=== PATIENT | female | born 1975 | race Caucasian/White ===

== ENCOUNTER 2017-02-11 17:40 | Emergency (ER) | payer MEDICAID ==
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
== END 2017-02-11 18:30 | disposition home or self-care (01) ==
LOC: ER 17:40
DX: S00.03XA Contusion of scalp, initial encounter (principal); I10 Essential (primary) hypertension; E11.9 Type 2 diabetes mellitus without complications; W19.XXXA Unspecified fall, initial encounter; Y93.89 Activity, other specified; Y92.89 Other specified places as the place of occurrence of the external cause; Y99.8 Other external cause status
CPT/HCPCS: Z7502

== ENCOUNTER 2018-01-07 09:57 | Inpatient (IN) | payer MEDICAID ==
[2018-01-07] MEDS ORDERED: Sodium Chloride 0.9% 1,000 ML IV ONE (11:10)
--- NOTE | 2018-01-07 11:18 | ED Physician Chart ---
ED Chief Complaint/HPI - Patient Information Date Seen:: 01/07/18 Time Seen:: 10:50 Chief Complaint:: EPIGASTRIC PAIN History of Present Illness:: 42 YR OLD FEMALE WITH EPIGASTRIC PAIN SINCE YEST BURNING PAIN UP IN THE CHEST HX OF GERD WAS ON ZANTAC AND STOPPED IT LAST WK SOME NAUSEA VOMITING HX OF DIABETES AND HYPERTENSION Allergies:: Allergies Allergy/AdvReac Type Severity Reaction Status Date / Time No Known Allergies Allergy Verified 02/11/17 18:03 Vitals:: Vital Signs - 8 hr 01/07/18 10:21 Temp 98.2 F HR 102 RR 18 BP 168/87 O2 Sat % 100 ED Review of Systems - Review of Systems General/Constitutional: Fever, Chills Skin: No skin lesions Neck: No neck pain Cardio Vascular: No chest pain Pulmonary: No SOB GI: Nausea, Vomiting Musculoskeletal: No bone or joint pain Endocrine: No polyuria Psychiatric: No prior psych history, No anxiety Hematopoietic: No bruising Neurological: No syncope ED Past Medical History - Past Medical History Past Medical History: HTN, DM Family Medical History - Family Member Mother History Unknown: Yes ED Physical Exam - Physical Examination General/Constitutional: Well-developed, well-nourished Skin: Nl inspection ENMT: External ears, nose nl Neck: Nontender Respiratory: Nl effort/Exclusion Cardio Vascular: RRR GI: No tenderness/rebounding/guarding : No CVA tenderness Extremities: No tenderness or effusion Neuro/Psych: Alert/oriented Misc: Normal back ED Assessment - Assessment General Assessment: ABD PAIN leukocytosis hyponatremia ED Septic Shock - . Is Septic Shock (SBP<90, OR Lactate>4 mmol\L) present?: No - <6hrs of presentation: Vital Signs: Vital Signs - 8 hr 01/07/18 10:21 Temp 98.2 F HR 102 RR 18 BP 168/87 O2 Sat % 100 ED Reassessment (Disposition) - Reassessment Reassessment Condition:: Improved (NS IV FLUIDS ZOFRAN ORDERED AND CT ABD PELVIS ) - Diagnosis Diagnosis:: ABD PAIN VOMITING hyponatremia leukocytosis CT ABD LABS UA ORDERED - Patient Disposition Discharge/Transfer:: Acute Care w/in this hosp Admitted to:: Med/Surg
[2018-01-07 11:28] LABS: URINE SOURCE CLEAN C
[2018-01-07 11:36] LABS: URINE BILIRUBIN NEGATIVE (NEGATIVE); URINE BLOOD NEGATIVE (NEGATIVE); URINE GLUCOSE (UA) >=1000 mg/dL (NEGATIVE); URINE KETONE NEGATIVE (NEGATIVE); URINE LEUKOCYTE ESTERASE NEGATIVE (NEGATIVE); URINE MICROSCOPIC INDICATED? YES; URINE NITRATE NEGATIVE (NEGATIVE); URINE PH 7.5 (4.6 - 8.0); URINE PROTEIN NEGATIVE (NEGATIVE); URINE UROBILINOGEN 0.2 E.U./dL (0.2 - 1.0)
[2018-01-07 11:37] LABS: % EOSINOPHILS 0.4 % (0.0-5.0); % LYMPHOCYTES 10.6 % (20.0-50.0); BASOPHILE ABSOLUTE 0.2 Th/cumm (0-0.2); EOSINOPHILE ABSOLUTE 0.1 Th/cmm (0.1-0.4); HEMATOCRIT 36.5 % (41.0-60); HEMOGLOBIN 12.5 gm/dL (12-16); LYMPHOCYTE ABSOLUTE 1.7 Th/cmm (1.5-3.0); MEAN CELL VOLUME 85.6 fl (81-100); MEAN CORPUSCULAR HEMOGLOBIN 29.2 pg (27.0-31.0); MEAN CORPUSCULAR HGB CONC 34.2 pg (28.0-36.0); MEAN PLATELET VOLUME 7.3 fl; MONOCYTE ABSOLUTE 0.8 Th/cmm (0.3-1.0); PLATELET COUNT 274 Th/cmm (150-400); RED BLOOD COUNT 4.26 Mil/cmm (3.80-5.10); RED CELL DISTRIBUTION WIDTH 12.9 % (11.5-20.0)
[2018-01-07 11:42] LABS: WHITE BLOOD COUNT 15.8 Th/cmm (4.8-10.8)
[2018-01-07 11:43] LABS: URINE CLARITY CLEAR (CLEAR); URINE COLOR YELLOW
[2018-01-07 11:45] LABS: URINE BACTERIA FEW /hpf (NONE SEEN); URINE EPITHELIAL CELLS OCCASIONAL /lpf (FEW); URINE RBC NONE SEEN /hpf (0-5)
[2018-01-07 11:47] LABS: ALBUMIN 3.7 gm/dL (3.7-5.3); ALKALINE PHOSPHATASE 61 U/L (34-104); BILIRUBIN,TOTAL 0.7 mg/dL (0.3-1.0); BUN - UREA NITROGEN 6 mg/dL (7-25); CALCIUM SERUM 9.4 mg/dL (8.6-10.3); CARBON DIOXIDE 28.8 mEq/L (21.0-31.0); CHLORIDE 91 mEq/L (98-107); CREATININE - SERUM 0.5 mg/dL (0.6-1.2); GFR AFRICAN-AMERICAN > 60.0 ml/min (>90); GFR NON AFRICAN-AMERICAN > 60.0 ml/min; GLUCOSE 301 mg/dL (70-105); POTASSIUM SERUM 3.8 mEq/L (3.5-5.1); SGOT 17 U/L (13-39); SGPT/ALT 35 U/L (7-52); SODIUM SERUM 127 mEq/L (136-145); TOTAL PROTEIN,SERUM 7.5 gm/dL (6.0-8.3)
[2018-01-07] MEDS ORDERED: Piperacillin Sodium/Tazobact 3.375 gm Vial IV ONE (13:12)
[2018-01-07] MEDS ORDERED: Sodium Chloride 0.9% 1,000 ML IV SCH (15:00)
[2018-01-07] MEDS: INSULIN ASPART SLIDING SCALE 100 UNITS/ML UNIT SUBQ SCH ×2 (19:37→20:49)
[2018-01-08 05:32] LABS: ALBUMIN 3.2 gm/dL (3.7-5.3); ALKALINE PHOSPHATASE 61 U/L (34-104); ANION GAP 10.1 (7.0-16.0); BILIRUBIN,TOTAL 0.9 mg/dL (0.3-1.0); BUN - UREA NITROGEN 6 mg/dL (7-25); CALCIUM SERUM 8.6 mg/dL (8.6-10.3); CARBON DIOXIDE 27.3 mEq/L (21.0-31.0); CHLORIDE 99 mEq/L (98-107); CREATININE - SERUM 0.5 mg/dL (0.6-1.2); GFR AFRICAN-AMERICAN > 60.0 ml/min (>90); GFR NON AFRICAN-AMERICAN > 60.0 ml/min; GLUCOSE 274 mg/dL (70-105); POTASSIUM SERUM 3.4 mEq/L (3.5-5.1); SGOT 11 U/L (13-39); SGPT/ALT 24 U/L (7-52); SODIUM SERUM 133 mEq/L (136-145); TOTAL PROTEIN,SERUM 6.4 gm/dL (6.0-8.3)
[2018-01-08 07:01] LABS: HEMATOCRIT 33.1 % (41.0-60); HEMOGLOBIN 11.4 gm/dL (12-16); MEAN CELL VOLUME 86.5 fl (81-100); MEAN CORPUSCULAR HEMOGLOBIN 29.7 pg (27.0-31.0); MEAN CORPUSCULAR HGB CONC 34.3 pg (28.0-36.0); MEAN PLATELET VOLUME 7.8 fl; PLATELET COUNT 257 Th/cmm (150-400); RED BLOOD COUNT 3.83 Mil/cmm (3.80-5.10); RED CELL DISTRIBUTION WIDTH 12.9 % (11.5-20.0)
[2018-01-08] MEDS: INSULIN ASPART SLIDING SCALE 100 UNITS/ML UNIT SUBQ SCH ×4 (07:01→20:48)
[2018-01-08 07:12] LABS: WHITE BLOOD COUNT 15.9 Th/cmm (4.8-10.8)
[2018-01-08 07:30] LABS: BAND NEUTROPHILE 3 % (0-10); BASOPHIL 0 % (0-3); EOSINOPHIL 0 % (0-5); LYMPHOCYTE 11 % (20-50); MONOCYTE 5 % (2-10); NEUTROPHILS 81 % (40-80)
--- NOTE | 2018-01-08 08:32 | History and Physical ---
History of Present Illness - HPI Chief Complaint: abdominal pain HPI: 42 y/o female who presents to [facility] ER for epigastric abdominal pain with associated nausea and vomiting. Patient complains of burning sensation to the chest. Patient has a history of GERD and takes only zantac and apparently stopped taking last week. Patient has a history of diabetes mellitus and hypertension and was found to have elevated blood sugars. Vital Signs: Last Vital Signs Temp 97.9 F 01/08/18 08:06 Pulse 81 01/08/18 08:06 Resp 18 01/08/18 08:06 BP 132/78 01/08/18 08:06 Pulse Ox 98 01/08/18 08:06 Past Medical History Cardiovascular: Report: HTN Pulmonary: Report: No Pertinent Hx TONGUE PRESSER: Report: No Pertinent Hx GI: Report: GERD Psych: Report: No Pertinent Hx Musculoskeletal: Report: No Pertinent Hx Rheumatologic: Report: No pertinent Hx Infectious Disease: Report: No Pertinent Hx Renal/: Report: No Pertinent Hx Endocrine: Report: Diabetes Dermatology: Report: No Pertinent Hx - Past Surgical History Past Surgical History: No pertinent Hx Family Medical History - Family Member Mother History Unknown: Yes Social History Smoke: No Alcohol: None Drugs: None Lives: Alone - Medications Home Medications: Home Medication Medication Instructions Recorded Type Insulin Glargine,Hum.rec.anlog 155 units SQ DAILY 01/07/18 History [Basaglar Kwikpen U-100] Lisinopril 20 mg PO DAILY 01/07/18 History Ranitidine HCl [Zantac] 150 mg PO DAILY 01/07/18 History metFORMIN [Glucophage] 500 mg PO BID 01/07/18 History - Allergies Allergies/Adverse Reactions: Allergies Allergy/AdvReac Type Severity Reaction Status Date / Time No Known Allergies Allergy Verified 01/07/18 12:09 Review of Systems - Review of Systems Constitutional: Report: Fever, Chills Eyes: Report: No Significant ENT: Report: No Significant Respiratory: Report: No Significant Cardiovascular: Denies: Chest Pain Gastrointestinal: Report: Nausea, Vomiting, Abdominal Pain Genitourinary: Report: No Significant Musculoskeletal: Report: No Significant Skin: Report: No Significant Neurological: Report: No Significant Physical Exam - Physical Exam HEENT: Report: Ears Nose Throat within normal limits, Pharnyx within normal limits Neck: Report: Within normal limits Cardiovascular Systems: Report: +s1/s2 noted, Regular, Rate and Rhythm Respiratory: Report: Breath Sounds are within normal limits, Clear to Auscultation of lung jo Abdomen: Report: Tender to palpation Back: Report: Inspection of back is within normal limits. - Lab Results All Lab Results last 24 hours: Laboratory Results - last 24 hr 01/07/18 01/07/18 01/07/18 10:35 11:20 11:20 WBC 15.8 H RBC 4.26 Hgb 12.5 Hct 36.5 L MCV 85.6 MCH 29.2 MCHC Differential 34.2 RDW 12.9 Plt Count 274 MPV 7.3 Add Manual Diff Neutrophils % 83.0 H Band Neutrophils % Lymphocytes % 10.6 L Monocytes % 5.0 Eosinophils % 0.4 Basophils % 1.0 Neutrophils (Manual) Lymphocytes Monocytes Eosinophils Basophils Sodium 127 L Potassium 3.8 Chloride 91 L Carbon Dioxide 28.8 Anion Gap 11.0 BUN 6 L Creatinine 0.5 L Est GFR ( Amer) > 60.0 Est GFR (Non-Af Amer) > 60.0 BUN/Creatinine Ratio 12.0 Glucose 301 H POC Glucose Whole Bld Lactic Acid Calcium 9.4 Total Bilirubin 0.7 AST 17 ALT 35 Alkaline Phosphatase 61 Troponin I Total Protein 7.5 Albumin 3.7 Globulin 3.8 Albumin/Globulin Ratio 1.0 Urine Source CLEAN C Urine Color YELLOW Urine Clarity CLEAR Urine pH 7.5 Ur Specific [place] 1.010 Urine Protein NEGATIVE Urine Glucose (UA) >=1000 H Urine Ketones NEGATIVE Urine Blood NEGATIVE Urine Nitrate NEGATIVE Urine Bilirubin NEGATIVE Urine Urobilinogen 0.2 Ur Leukocyte Esterase NEGATIVE Urine RBC NONE SEEN Urine WBC 2-5 Ur Epithelial Cells OCCASIONAL Urine Bacteria FEW Urine Test 01/07/18 01/07/18 01/07/18 11:20 11:20 11:40 WBC RBC Hgb Hct MCV MCH MCHC Differential RDW Plt Count MPV Add Manual Diff Neutrophils % Band Neutrophils % Lymphocytes % Monocytes % Eosinophils % Basophils % Neutrophils (Manual) Lymphocytes Monocytes Eosinophils Basophils Sodium Potassium Chloride Carbon Dioxide Anion Gap BUN Creatinine Est GFR ( Amer) Est GFR (Non-Af Amer) BUN/Creatinine Ratio Glucose POC Glucose Whole Bld Lactic Acid 1.31 Calcium Total Bilirubin AST ALT Alkaline Phosphatase Troponin I < 0.01 L Total Protein Albumin Globulin Albumin/Globulin Ratio Urine Source Urine Color Urine Clarity Urine pH Ur Specific [place] Urine Protein Urine Glucose (UA) Urine Ketones Urine Blood Urine Nitrate Urine Bilirubin Urine Urobilinogen Ur Leukocyte Esterase Urine RBC Urine WBC Ur Epithelial Cells Urine Bacteria Urine Test NEGATIVE 01/07/18 01/07/18 01/07/18 14:11 17:06 18:58 WBC RBC Hgb Hct MCV MCH MCHC Differential RDW Plt Count MPV Add Manual Diff Neutrophils % Band Neutrophils % Lymphocytes % Monocytes % Eosinophils % Basophils % Neutrophils (Manual) Lymphocytes Monocytes Eosinophils Basophils Sodium Potassium Chloride Carbon Dioxide Anion Gap BUN Creatinine Est GFR ( Amer) Est GFR (Non-Af Amer) BUN/Creatinine Ratio Glucose POC Glucose 298 H 246 H 230 H Whole Bld Lactic Acid Calcium Total Bilirubin AST ALT Alkaline Phosphatase Troponin I Total Protein Albumin Globulin Albumin/Globulin Ratio Urine Source Urine Color Urine Clarity Urine pH Ur Specific [place] Urine Protein Urine Glucose (UA) Urine Ketones Urine Blood Urine Nitrate Urine Bilirubin Urine Urobilinogen Ur Leukocyte Esterase Urine RBC Urine WBC Ur Epithelial Cells Urine Bacteria Urine Test 01/08/18 01/08/18 01/08/18 05:00 05:00 05:51 WBC 15.9 H RBC 3.83 Hgb 11.4 L Hct 33.1 L MCV 86.5 MCH 29.7 MCHC Differential 34.3 RDW 12.9 Plt Count 257 MPV 7.8 Add Manual Diff YES Neutrophils % Band Neutrophils % 3 Lymphocytes % Monocytes % Eosinophils % Basophils % Neutrophils (Manual) 81 H Lymphocytes 11 L Monocytes 5 Eosinophils 0 Basophils 0 Sodium 133 L Potassium 3.4 L Chloride 99 Carbon Dioxide 27.3 Anion Gap 10.1 BUN 6 L Creatinine 0.5 L Est GFR ( Amer) > 60.0 Est GFR (Non-Af Amer) > 60.0 BUN/Creatinine Ratio 12.0 Glucose 274 H POC Glucose 248 H Whole Bld Lactic Acid Calcium 8.6 Total Bilirubin 0.9 AST 11 L ALT 24 Alkaline Phosphatase 61 Troponin I Total Protein 6.4 Albumin 3.2 L Globulin 3.2 Albumin/Globulin Ratio 1.0 Urine Source Urine Color Urine Clarity Urine pH Ur Specific [place] Urine Protein Urine Glucose (UA) Urine Ketones Urine Blood Urine Nitrate Urine Bilirubin Urine Urobilinogen Ur Leukocyte Esterase Urine RBC Urine WBC Ur Epithelial Cells Urine Bacteria Urine Test - Assessment Assessment: abdominal pain pyelonephritis leukocytosis hyponatremia diabetes mellitus hypertension - Plan Plan: keep NPO continue IV fluids continue IV Zosyn Zofran IV PRN Nausea repeat cbc, cmp UA GI consult -- Dr. Whitfield ID consult --
--- NOTE | 2018-01-08 08:37 | Diagnostic Imaging Report ---
CT scan abdomen and pelvis without intravenous contrast HISTORY: Pain Total DLP equals 639 CTDI equals 12.8 Axial sections were obtained from the xiphoid process down to the pubic symphysis. The exam of the liver demonstrates a slight decrease in overall parenchymal density. The findings may be associated with fatty infiltration and should be correlated with liver function tests. No focal lesions. The spleen is somewhat generous in size. No focal amenities seen within the pancreas. An approximate 1.5 cm cyst extends off the lower cortex of the right kidney. There is mild generalized enlargement of the left kidney with mild perinephric stranding. Inflammatory change (pyelonephritis) cannot be excluded. Clinical correlation is needed. No calculi. No hydronephrosis. The exam of the pelvis demonstrates mild right adnexal fullness with hypodensity probably related to ovarian cystic changes. No free fluid within the pelvis. IMPRESSION: 1. Mild enlargement of the left kidney along with mild perinephric stranding. Inflammatory change (pyelonephritis) cannot be excluded 2. Right renal cysts 3. Mild right adnexal fullness with hypodensity probably related to ovarian cystic changes.
[2018-01-08 08:59] LABS: CHOLESTEROL 100 mg/dL (<200); HDL -HIGH DENSITY LIPOPROTEIN 23 mg/dL (23-92); TRIGLYCERIDES 81 mg/dL (<150)
--- NOTE | 2018-01-08 10:02 | Diagnostic Imaging Report ---
Abdominal ultrasound HISTORY: Pain The liver is enlarged. There is an increase in hepatic parenchymal echogenicity. The finding may be associated with fatty infiltration and should be correlated with liver function tests. No focal lesions. The gallbladder appears normal. No calculi are seen. No biliary dilatation. The pancreas cannot be seen due to bowel gas. Suboptimal detail of the right kidney due to motion. The kidney appears to be slightly increased in size (13.5 x 5.1 x 5.5 cm). No definite focal lesions or hydronephrosis. The left kidney is increased in size (14.7 x 7.3 x 7.3 cm). Detail limited due to patient motion. The spleen is increased in size (13.0 cm). No other retroperitoneal or intra-abdominal abnormalities. IMPRESSION: 1. Limited exam due to patient motion 2. Hepatomegaly along with parenchymal changes that may reflect fatty infiltration. The findings should be correlated with liver function tests. 3. Increased renal sizes bilaterally. The significance should be correlated with renal function tests 4. Splenomegaly
[2018-01-08] MEDS: Vancomycin HCl 1.5 GM in Sodium Chloride 0.9% 500 ML IV SCH (10:47)
[2018-01-08 17:24] LABS: A1C % 8.1 % (4.0-6.0)
--- NOTE | 2018-01-08 18:16 | Consultation ---
DATE OF CONSULTATION: 01/08/2018 GASTROENTEROLOGY CONSULTATION REQUESTING PHYSICIAN: Huber Forman M.D. REASON FOR CONSULTATION: Epigastric abdominal pain. HISTORY OF PRESENT ILLNESS: A 42-year-old female with obesity, diabetes mellitus and hypertension and GERD, admitted for a 3-day history of epigastric pain with nausea and vomiting and burning sensation. There is no back pain, no urinary symptoms. She was diagnosed with a possible UTI and pyelonephritis and given broad spectrum antibiotics. She has never had pain like this before. She never had a previous endoscopy, colonoscopy. There has been no witnessed GI bleeding, diarrhea or constipation. PAST MEDICAL HISTORY: As above. MEDICATIONS: Here are Tylenol, insulin sliding scale, Zestril, Zosyn, IV vancomycin, Zofran, Protonix and IV fluids. ALLERGIES: No known drug allergies. SOCIAL HISTORY: No recent tobacco, alcohol or drugs. FAMILY HISTORY: Noncontributory. REVIEW OF SYSTEMS: Negative. PHYSICAL EXAMINATION: VITAL SIGNS: Temperature of 99.8, blood pressure 156/80, pulse of 107, respirations 18, O2 sat is 98%. GENERAL: The patient is well-developed, well-nourished, obese female who is in mild distress, complaining of headache. HEENT: Sclerae nonicteric. Oropharynx is clear. CARDIOVASCULAR: Regular rate and rhythm. LUNGS: Clear to auscultation bilaterally. ABDOMEN: Soft, mild epigastric tenderness to palpation, mild distention. Hypoactive bowel sounds. No rebound or guarding. EXTREMITIES: No edema. LABORATORY/IMAGING: WBC 15.9, hemoglobin 11.4, platelet count is normal. Sodium 133, creatinine 0.5. Liver enzymes normal. Triglycerides 81. TSH normal. Urinalysis shows a high amount of glucose, but otherwise negative. A 2-5 wbc's and few bacteria are noted. CT of the abdomen and pelvis done yesterday without contrast shows a mild enlargement of left kidney with mild perinephric stranding inflammatory change cannot be ruled out such as pyelonephritis, also right renal cyst, mild right adnexal fullness and hypodensity probably related to ovarian cystic change. Abdominal ultrasound shows limited examination, hepatomegaly with parenchymal changes that may reflect fatty infiltration, increased renal sizes bilaterally and splenomegaly. IMPRESSION: 1. Epigastric abdominal pain, nausea and vomiting, rule out pancreatitis versus pyelonephritis versus peptic ulcer disease or bad gastroesophageal reflux disease. 2. Leukocytosis, rule out sepsis. 3. Diabetes mellitus. 4. Hypertension. 5. Obesity. RECOMMENDATIONS: 1. Protonix. 2. Antiemetics. 3. Consider upper endoscopy. 4. Check amylase and lipase. 5. IV fluids. 6. Clear liquid diet for now and may advance as tolerated once symptoms have improved. 7. Protonix. Thank you, Dr. Huber Forman for involving us in the care of your patient. If you have any further questions, please call us. JOB# [id number]
[2018-01-09] MEDS: Vancomycin HCl 1.5 GM in Sodium Chloride 0.9% 500 ML IV SCH ×2 (00:09→11:19)
--- NOTE | 2018-01-09 00:26 | Consultation ---
DATE OF CONSULTATION: 01/08/2018 INFECTIOUS DISEASE CONSULTATION REFERRING PHYSICIAN: Huber Forman DO REASON FOR CONSULTATION: Sepsis. HISTORY OF PRESENT ILLNESS: The patient is 42-year-old female with a past medical history of hypertension, presented to the ER with epigastric abdominal pain associated with nausea and vomiting. The patient also complained of a burning sensation in the chest. Afterwards, she started having cough. On initial evaluation, the patient's temperature was 98.2 degrees Fahrenheit, which went up to 101.2 degrees Fahrenheit, pulse went up to 106. WBC count of 15,800. CT scan of the abdomen and pelvis revealed fatty liver and nephromegaly. May consider pyelonephritis. The patient has no dysuria. Urinalysis negative for any pyuria or bacteriuria. After performing sepsis workup, antibiotic padilla Zosyn and vancomycin were started. ID consult was called for further evaluation and management. PAST MEDICAL HISTORY: 1. Diabetes mellitus. 2. Hypertension. 3. Mild obesity. ALLERGIES: NKDA. MEDICATIONS: See medication reconciliation sheet. Antibiotic padilla, the patient is on vancomycin and Zosyn. FAMILY HISTORY: Noncontributory. SOCIAL HISTORY: The patient lives at home. Denies any smoking. REVIEW OF SYSTEMS: GENERAL: The patient has fever and chills. HEENT: No diplopia, no photophobia, no sore throat. RESPIRATORY: The patient has some cough, no shortness of breath. CVS: No chest pain or palpitation. PULMONARY: The patient has cough, no shortness of breath. GASTROINTESTINAL: No nausea, no vomiting, no diarrhea. No constipation. GENITOURINARY: No dysuria. NEUROLOGIC: No headache, no dizziness, no focal weakness. PHYSICAL EXAMINATION: VITAL SIGNS: Shows temperature is 99.8 degrees with a T-max 101.2 degrees Fahrenheit, pulse is 107, respirations 18, blood pressure 156/80. GENERAL: The patient is comfortable lying in the bed, not in acute distress. HEENT: Head is normocephalic, atraumatic. Oral cavity moist, pink tongue. Eyes: Pallor is present, no icterus. PERRLA, EOMI. NECK: Supple, no JVD, no carotid bruit. Trachea midline. CHEST: Bilateral breath sounds. No crackles or wheezing. HEART: S1, S2 within normal limits. Regular rhythm. No murmur, no gallop. ABDOMEN: Soft, nontender, nondistended. Bowel sounds present. EXTREMITIES: No cyanosis, no clubbing, no edema. NEUROLOGICAL: Alert, awake, oriented x 3. No focal deficits. LABORATORY DATA: Current lab shows WBC count of 15,900, hemoglobin 11.4, hematocrit 33.9, platelets are 257,000, neutrophils 81%. Sodium is 133, potassium 3.4, chloride 99, bicarbonate is 27, BUN is 6, creatinine 0.5, glucose is 234. Urinalysis showed negative nitrite, negative leukocyte esterase, bacteria few. wbc's 2-5. Urine test is negative. IMAGING STUDIES: CT scan of the abdomen and pelvis showed mild enlargement of the left kidney along with mild perinephric stranding, inflammatory changes, pyelonephritis cannot be excluded. Right renal cyst, mild right adnexal fullness with hypodensity probably related to ovarian cyst changes. IMPRESSION: 1. Sepsis. 2. Pyelonephritis, left side. 3. Hypertension. 4. Diabetes mellitus. RECOMMENDATION AND PLAN: Continue vancomycin and Zosyn. Follow the culture report and go from there. Thank you Dr. Forman for allowing me to take care of this patient. JOB# [id number]
[2018-01-09 05:18] LABS: % BASOPHILS 0.5 % (0.0-2.0); % EOSINOPHILS 0.7 % (0.0-5.0); % LYMPHOCYTES 12.1 % (20.0-50.0); % MONOCYTES 7.3 % (2.0-10.0); % NEUTROPHILS 79.4 % (40.0-80.0); BASOPHILE ABSOLUTE 0.1 Th/cumm (0-0.2); EOSINOPHILE ABSOLUTE 0.1 Th/cmm (0.1-0.4); HEMATOCRIT 31.7 % (41.0-60); HEMOGLOBIN 10.8 gm/dL (12-16); LYMPHOCYTE ABSOLUTE 1.5 Th/cmm (1.5-3.0); MEAN CELL VOLUME 86.1 fl (81-100); MEAN CORPUSCULAR HEMOGLOBIN 29.3 pg (27.0-31.0); MEAN PLATELET VOLUME 7.1 fl; MONOCYTE ABSOLUTE 0.9 Th/cmm (0.3-1.0); NEUTROPHILE ABSOLUTE 9.8 Th/cmm (1.8-8.0); PLATELET COUNT 257 Th/cmm (150-400); RED BLOOD COUNT 3.69 Mil/cmm (3.80-5.10); RED CELL DISTRIBUTION WIDTH 12.4 % (11.5-20.0)
[2018-01-09 05:19] LABS: WHITE BLOOD COUNT 12.4 Th/cmm (4.8-10.8)
[2018-01-09 05:24] LABS: INR 1.09 (0.5-1.4); PROTHROMBIN TIME (TEST) 11.3 SECONDS (9.5-11.5)
[2018-01-09 05:33] LABS: ALB/GLOB RATIO 0.9 (1.0-1.8); ALBUMIN 3.1 gm/dL (3.7-5.3); ALKALINE PHOSPHATASE 62 U/L (34-104); ANION GAP 11.5 (7.0-16.0); BILIRUBIN,TOTAL 0.8 mg/dL (0.3-1.0); BUN - UREA NITROGEN 5 mg/dL (7-25); CALCIUM SERUM 8.4 mg/dL (8.6-10.3); CHLORIDE 102 mEq/L (98-107); CREATININE - SERUM 0.4 mg/dL (0.6-1.2); GFR AFRICAN-AMERICAN > 60.0 ml/min (>90); GFR NON AFRICAN-AMERICAN > 60.0 ml/min; GLUCOSE 268 mg/dL (70-105); LIPASE 3 U/L (11-82); POTASSIUM SERUM 3.5 mEq/L (3.5-5.1); SGOT 10 U/L (13-39); SGPT/ALT 19 U/L (7-52); SODIUM SERUM 134 mEq/L (136-145); TOTAL PROTEIN,SERUM 6.5 gm/dL (6.0-8.3)
[2018-01-09] MEDS: INSULIN ASPART SLIDING SCALE 100 UNITS/ML UNIT SUBQ SCH ×4 (06:38→20:13)
--- NOTE | 2018-01-09 08:28 | General Progress Note ---
Subjective - Review of Systems Service Date: 01/09/18 Subjective: Patient was seen and evaluated. Still complaining of some abdominal pain but has improved. for endoscopy today. Objective - Results Result Diagrams: 01/09/18 04:55 01/09/18 04:55 Recent Labs: Laboratory Last Values WBC 12.4 Th/cmm (4.8-10.8) H D 01/09/18 04:55 RBC 3.69 Mil/cmm (3.80-5.10) L 01/09/18 04:55 Hgb 10.8 gm/dL (12-16) L 01/09/18 04:55 Hct 31.7 % (41.0-60) L 01/09/18 04:55 MCV 86.1 fl (81-100) 01/09/18 04:55 MCH 29.3 pg (27.0-31.0) 01/09/18 04:55 MCHC Differential 34.0 pg (28.0-36.0) 01/09/18 04:55 RDW 12.4 % (11.5-20.0) 01/09/18 04:55 Plt Count 257 Th/cmm (150-400) 01/09/18 04:55 MPV 7.1 fl 01/09/18 04:55 Add Manual Diff YES 01/08/18 05:00 Neutrophils % 79.4 % (40.0-80.0) 01/09/18 04:55 Band Neutrophils % 3 % (0-10) 01/08/18 05:00 Lymphocytes % 12.1 % (20.0-50.0) L 01/09/18 04:55 Monocytes % 7.3 % (2.0-10.0) 01/09/18 04:55 Eosinophils % 0.7 % (0.0-5.0) 01/09/18 04:55 Basophils % 0.5 % (0.0-2.0) 01/09/18 04:55 Neutrophils (Manual) 81 % (40-80) H 01/08/18 05:00 Lymphocytes 11 % (20-50) L 01/08/18 05:00 Monocytes 5 % (2-10) 01/08/18 05:00 Eosinophils 0 % (0-5) 01/08/18 05:00 Basophils 0 % (0-3) 01/08/18 05:00 PT 11.3 SECONDS (9.5-11.5) 01/09/18 04:55 INR 1.09 (0.5-1.4) 01/09/18 04:55 Sodium 134 mEq/L (136-145) L 01/09/18 04:55 Potassium 3.5 mEq/L (3.5-5.1) 01/09/18 04:55 Chloride 102 mEq/L (98-107) 01/09/18 04:55 Carbon Dioxide 24.0 mEq/L (21.0-31.0) 01/09/18 04:55 Anion Gap 11.5 (7.0-16.0) 01/09/18 04:55 BUN 5 mg/dL (7-25) L 01/09/18 04:55 Creatinine 0.4 mg/dL (0.6-1.2) L 01/09/18 04:55 Est GFR ( Amer) > 60.0 ml/min (>90) 01/09/18 04:55 Est GFR (Non-Af Amer) > 60.0 ml/min 01/09/18 04:55 BUN/Creatinine Ratio 12.5 01/09/18 04:55 Glucose 268 mg/dL (70-105) H 01/09/18 04:55 POC Glucose 262 MG/DL (70 - 105) H 01/09/18 06:12 Hemoglobin A1c % 8.1 % (4.0-6.0) H 01/07/18 11:20 Whole Bld Lactic Acid 1.31 mmol/L (0.60-1.99) 01/07/18 11:20 Calcium 8.4 mg/dL (8.6-10.3) L 01/09/18 04:55 Total Bilirubin 0.8 mg/dL (0.3-1.0) 01/09/18 04:55 AST 10 U/L (13-39) L 01/09/18 04:55 ALT 19 U/L (7-52) 01/09/18 04:55 Alkaline Phosphatase 62 U/L (34-104) 01/09/18 04:55 Troponin I < 0.01 ng/mL (0.01-0.05) L 01/07/18 11:20 Total Protein 6.5 gm/dL (6.0-8.3) 01/09/18 04:55 Albumin 3.1 gm/dL (3.7-5.3) L 01/09/18 04:55 Globulin 3.4 gm/dL 01/09/18 04:55 Albumin/Globulin Ratio 0.9 (1.0-1.8) L 01/09/18 04:55 Triglycerides 81 mg/dL (<150) 01/08/18 05:00 Cholesterol 100 mg/dL (<200) 01/08/18 05:00 LDL Cholesterol Direct 67 mg/dL (75-193) L 01/08/18 05:00 HDL Cholesterol 23 mg/dL (23-92) 01/08/18 05:00 Lipase 3 U/L (11-82) L 01/09/18 04:55 TSH 1.36 uIU/ml (0.34-5.60) 01/08/18 05:00 Urine Source CLEAN C 01/07/18 10:35 Urine Color YELLOW 01/07/18 10:35 Urine Clarity CLEAR (CLEAR) 01/07/18 10:35 Urine pH 7.5 (4.6 - 8.0) 01/07/18 10:35 Ur Specific [place] 1.010 (1.005-1.030) 01/07/18 10:35 Urine Protein NEGATIVE mg/dL (NEGATIVE) 01/07/18 10:35 Urine Glucose (UA) >=1000 mg/dL (NEGATIVE) H 01/07/18 10:35 Urine Ketones NEGATIVE mg/dL (NEGATIVE) 01/07/18 10:35 Urine Blood NEGATIVE (NEGATIVE) 01/07/18 10:35 Urine Nitrate NEGATIVE (NEGATIVE) 01/07/18 10:35 Urine Bilirubin NEGATIVE (NEGATIVE) 01/07/18 10:35 Urine Urobilinogen 0.2 E.U./dL (0.2 - 1.0) 01/07/18 10:35 Ur Leukocyte Esterase NEGATIVE (NEGATIVE) 01/07/18 10:35 Urine RBC NONE SEEN /hpf (0-5) 01/07/18 10:35 Urine WBC 2-5 /hpf (0-5) 01/07/18 10:35 Ur Epithelial Cells OCCASIONAL /lpf (FEW) 01/07/18 10:35 Urine Bacteria FEW /hpf (NONE SEEN) 01/07/18 10:35 Urine Test NEGATIVE 01/07/18 11:40 - Physical Exam Vitals and I&O: Vital Signs Temp 96.1 F 01/09/18 08:18 Pulse 94 01/09/18 08:18 Resp 18 01/09/18 08:18 BP 121/64 01/09/18 08:18 Pulse Ox 94 01/09/18 08:18 Intake & Output 01/08/18 01/09/18 01/09/18 18:59 06:59 18:59 Intake Total 1200 100 Balance 1200 100 Weight (lbs) 87.997 kg Intake: Intake, IV Amount 700 100 Piperacillin Sodium/ 200 100 Tazobact 4.5 gm In Sodium Chloride 0.9% 100 ml @ 100 mls/hr IV Q8H [facility] Rx# :[id number] Vancomycin HCl 1.5 gm In 500 Sodium Chloride 0.9% 500 ml @ 250 mls/hr IV Q12H [facility] Rx#:[id number] Oral 500 Other: # Voids 3 Weight Source Bedscale Active Medications: Current Medications Acetaminophen (Tylenol) 650 mg PO Q6H PRN PRN Reason: Pain or Fever >101 Stop: 03/08/18 15:33 Last Admin: 01/09/18 04:04 Dose: 650 mg Piperacillin Sod/Tazobactam (Sod 4.5 gm/ Sodium Chloride) 100 mls @ 100 mls/hr IV Q8H [facility] Stop: 03/08/18 15:14 Last Admin: 01/09/18 07:46 Dose: 100 mls/hr Potassium Chloride 10 meq/ (Sodium Chloride) 1,005 mls @ 50 mls/hr IV .Q20H6M [facility] Stop: 03/09/18 09:59 Last Admin: 01/09/18 06:50 Dose: Not Given Vancomycin HCl 1.5 gm/ Sodium (Chloride) 500 mls @ 250 mls/hr IV Q12H [facility] Stop: 03/09/18 09:59 Last Admin: 01/09/18 00:09 Dose: 250 mls/hr Insulin Aspart (Novolog Insulin Sliding Scale) 0 units SUBQ ACHS [facility]; Protocol Stop: 03/08/18 16:29 Last Admin: 01/09/18 06:38 Dose: Not Given Lisinopril (Zestril) 20 mg PO DAILY [facility] Stop: 03/09/18 08:59 Last Admin: 01/08/18 13:18 Dose: 20 mg Miscellaneous (Zosyn Iv Per Pharmacy) 1 ea PRN PRN PRN Reason: PROTOCOL Stop: 03/08/18 14:59 Miscellaneous (Vancomycin Iv Per Pharmacy) 1 ea PRN PRN PRN Reason: PROTOCOL Stop: 03/09/18 08:41 Ondansetron HCl (Zofran) 4 mg IV Q4H PRN PRN Reason: Nausea / Vomiting Stop: 03/08/18 14:59 Pantoprazole Sodium (Protonix) 40 mg IVP DAILY [facility] Stop: 03/08/18 17:59 Last Admin: 01/08/18 08:18 Dose: 40 mg General: Alert, Oriented x3, No acute distress HEENT: Atraumatic, PERRLA, EOMI Neck: Supple, no JVD, no Thyromegaly Cardiovascular: Regular rate, Normal S1, Normal S2 Lungs: Clear to auscultation Abdomen: Bowel sounds Extremities: no Clubbing, no Cyanosis, no Edema Assessment/Plan - Assessment Assessment: abdominal pain pyelonephritis leukocytosis hyponatremia diabetes mellitus hypertension - Plan Plan: keep NPO continue IV fluids continue IV Zosyn Zofran IV PRN Nausea repeat cbc, cmp UA GI consult -- Dr. Whitfield ID consult -- Dr. Walter Sarah For endoscopy Nutritional Asmnt/Malnutr-PDOC - Dietary Evaluation Malnutrition Findings (Please click <Entered> for more info): Nutritional Asmnt/Malnutrition Start: 01/08/18 17: 19 Text: Status: Complete Freq: Protocol: Document 01/08/18 17:19 LCHENG (Rec: 01/08/18 17:25 [email or web address]) Nutritional Asmnt/Malnutrition Patient General Information Nutritional Screening High Risk Consult Diagnosis hyponatremia, leukocytosis Pertinent Medical Hx/Surgical Hx HTN, DM Subjective Information Pt seen sitting up in bed at time of visit, wake and alert. Clear liquid diet started at lunch. Pt reported she was able to take liquid slowly. Appetite is ok. Current Diet Order/ Nutrition Support clear liquid Pertinent Medications novolog, zofran, protonix, piperacillin, kcl 10 meq, vancomycin Pertinent Labs 01/08 Na 133, K 3.4, BUN 6, Cr 0.5, glucose 274, POC 219-359, alb 3.2 01/07 Na 127, Cl 91, BUN 6, Cr 0.5, glucose 301 Nutritional Hx/Data Height 1.52 m Height (Calculated Centimeters) 152.4 Current Weight (lbs) 87.997 kg Weight (Calculated Kilograms) 88.0 Weight (Calculated Grams) 84773.9 [place] Body Weight 100 Body Mass Index (BMI) 37.8 Weight Status Obese GI Symptoms GI Symptoms None Last BM not indicated Difficult in: None Usual diet at home Per pt, she has not been following diabetic diet. Monitor glucose level once daily. Pt stated she is ready to start diabetic diet now. Skin Integrity/Comment: intact Estimated Nutritional Goals BEE in Kcals: Adj wt of IBW Calories/Kcals/Kg 25-30 adj wt 56kg Kcals Calculated 3588-9776 Protein: Adj wt of IBW Protein g/k-1.2 Protein Calculated 56-67 Fluid: ml 1400-1680ml (1ml/kcal) Nutritional Problem 1. Problem Problem alteread nutrition related labs Etiology electrolytes imbalance and hx of DM and not following theraputic diet Signs/Symptoms: Na 133, K 3.4, glucose 274, POC 219-359 Malnutrition Alert Is there a minimum of two criteria No selected? Query Text:Check all the applicable criteria. A minimum of two criteria are recommended for diagnosis of either severe or non-severe malnutrition. Malnutrition Related to Morbid Obesity Malnutrition related to morbid obesity No Intervention/Recommendation Comments 1. Continue with current diet as ordered. [facility] diet when medically appropriate. Nutrition education provided, handout provided. Had discussion about diabetic diet. Pt verbalized understanding. 2. Monitor PO intake, wt, labs and skin integrity 3. F/U as high risk in 2-3 days, 01/10-01/11 Expected Outcomes/Goals Expected Outcomes/Goals 1. PO intake to meet at least 75% of nutritional needs. 2. Wt stability, skin to remain intact, labs to approach WNL.
[2018-01-09] MEDS ORDERED: Lidocaine 2% Gel 5 mL TP ONE (10:00)
[2018-01-09] MEDS ORDERED: Propofol 10 mg/mL 20mL Vial **SURGERY USE ONLY IV ONE (10:00)
--- NOTE | 2018-01-09 11:09 | Operative Report ---
DATE OF SURGERY: 01/09/2018 PROCEDURE: Esophagogastroduodenoscopy with biopsy. PREPROCEDURE DIAGNOSIS: Epigastric abdominal pain. POSTPROCEDURE DIAGNOSES: 1. Mild reflux esophagitis status post biopsy. 2. Mild antral gastritis status post biopsy and CLOtest. 3. Normal duodenum, status post biopsy, rule out celiac disease. INDICATION: A 42-year-old obese female admitted for abdominal pain and possible sepsis with leukocytosis and possible pyelonephritis. An upper endoscopy is planned today to rule out peptic ulcer disease or upper GI neoplasm. CONSENT: Informed consent was obtained from the patient prior to procedure after explanation of risks, benefits, and alternatives including but not limited to infection, bleeding, perforation, and . SEDATION: Monitored anesthesia care per Dr. Whelan. DESCRIPTION OF PROCEDURE AND FINDINGS: The procedure took place as an inpatient in the GI suite of [facility]. The patient was kept in left lateral decubitus position. Adequate sedation was achieved with above medications. The Olympus diagnostic upper endoscope was advanced through the patient's mouth and into the esophagus. The esophagus contained some mild reflux esophagitis distally. The Z line was at 38 cm from the gums. Biopsies were obtained from this area to rule out short segment Back esophagus or occult dysplasia. Retroflexion in the stomach revealed no GE junction mass or varices. No hiatal hernia was identified. Mild gastritis was identified in the antrum. Biopsies were obtained from antrum and mid body, and submitted for CLOtest as well as pathology. The pyloric channel and duodenum up to second portion appeared normal, and biopsies were obtained from first and second portion to rule out celiac disease. The scope was then withdrawn from the patient. The patient tolerated the procedure well and no complications are anticipated. RECOMMENDATIONS: 1. Resume oral diet. 2. Follow up biopsy results. 3. Protonix. 4. Antiemetics as needed. 5. Monitor labs. Thank you, Dr. Huber Forman for involving us in the care of your patient. If you have any further questions, please call us. JOB# [id number]
[2018-01-09] MEDS ORDERED: Probiotic Screen MC PRN (11:15)
--- NOTE | 2018-01-09 14:23 | Infectious Disease Prog Note ---
Infectious Disease Subjective - Review of Systems Service Date: 01/09/18 Events since last encounter: doing better, no fevers, no back pains. Infectious Disease Objective - Results Result Diagrams: 01/09/18 04:55 01/09/18 04:55 Recent Labs: Laboratory Last Values WBC 12.4 Th/cmm (4.8-10.8) H D 01/09/18 04:55 RBC 3.69 Mil/cmm (3.80-5.10) L 01/09/18 04:55 Hgb 10.8 gm/dL (12-16) L 01/09/18 04:55 Hct 31.7 % (41.0-60) L 01/09/18 04:55 MCV 86.1 fl (81-100) 01/09/18 04:55 MCH 29.3 pg (27.0-31.0) 01/09/18 04:55 MCHC Differential 34.0 pg (28.0-36.0) 01/09/18 04:55 RDW 12.4 % (11.5-20.0) 01/09/18 04:55 Plt Count 257 Th/cmm (150-400) 01/09/18 04:55 MPV 7.1 fl 01/09/18 04:55 Add Manual Diff YES 01/08/18 05:00 Neutrophils % 79.4 % (40.0-80.0) 01/09/18 04:55 Band Neutrophils % 3 % (0-10) 01/08/18 05:00 Lymphocytes % 12.1 % (20.0-50.0) L 01/09/18 04:55 Monocytes % 7.3 % (2.0-10.0) 01/09/18 04:55 Eosinophils % 0.7 % (0.0-5.0) 01/09/18 04:55 Basophils % 0.5 % (0.0-2.0) 01/09/18 04:55 Neutrophils (Manual) 81 % (40-80) H 01/08/18 05:00 Lymphocytes 11 % (20-50) L 01/08/18 05:00 Monocytes 5 % (2-10) 01/08/18 05:00 Eosinophils 0 % (0-5) 01/08/18 05:00 Basophils 0 % (0-3) 01/08/18 05:00 PT 11.3 SECONDS (9.5-11.5) 01/09/18 04:55 INR 1.09 (0.5-1.4) 01/09/18 04:55 Sodium 134 mEq/L (136-145) L 01/09/18 04:55 Potassium 3.5 mEq/L (3.5-5.1) 01/09/18 04:55 Chloride 102 mEq/L (98-107) 01/09/18 04:55 Carbon Dioxide 24.0 mEq/L (21.0-31.0) 01/09/18 04:55 Anion Gap 11.5 (7.0-16.0) 01/09/18 04:55 BUN 5 mg/dL (7-25) L 01/09/18 04:55 Creatinine 0.4 mg/dL (0.6-1.2) L 01/09/18 04:55 Est GFR ( Amer) > 60.0 ml/min (>90) 01/09/18 04:55 Est GFR (Non-Af Amer) > 60.0 ml/min 01/09/18 04:55 BUN/Creatinine Ratio 12.5 01/09/18 04:55 Glucose 268 mg/dL (70-105) H 01/09/18 04:55 POC Glucose 215 MG/DL (70 - 105) H 01/09/18 11:46 Hemoglobin A1c % 8.1 % (4.0-6.0) H 01/07/18 11:20 Whole Bld Lactic Acid 1.31 mmol/L (0.60-1.99) 01/07/18 11:20 Calcium 8.4 mg/dL (8.6-10.3) L 01/09/18 04:55 Total Bilirubin 0.8 mg/dL (0.3-1.0) 01/09/18 04:55 AST 10 U/L (13-39) L 01/09/18 04:55 ALT 19 U/L (7-52) 01/09/18 04:55 Alkaline Phosphatase 62 U/L (34-104) 01/09/18 04:55 Troponin I < 0.01 ng/mL (0.01-0.05) L 01/07/18 11:20 Total Protein 6.5 gm/dL (6.0-8.3) 01/09/18 04:55 Albumin 3.1 gm/dL (3.7-5.3) L 01/09/18 04:55 Globulin 3.4 gm/dL 01/09/18 04:55 Albumin/Globulin Ratio 0.9 (1.0-1.8) L 01/09/18 04:55 Triglycerides 81 mg/dL (<150) 01/08/18 05:00 Cholesterol 100 mg/dL (<200) 01/08/18 05:00 LDL Cholesterol Direct 67 mg/dL (75-193) L 01/08/18 05:00 HDL Cholesterol 23 mg/dL (23-92) 01/08/18 05:00 Lipase 3 U/L (11-82) L 01/09/18 04:55 TSH 1.36 uIU/ml (0.34-5.60) 01/08/18 05:00 Urine Source CLEAN C 01/07/18 10:35 Urine Color YELLOW 01/07/18 10:35 Urine Clarity CLEAR (CLEAR) 01/07/18 10:35 Urine pH 7.5 (4.6 - 8.0) 01/07/18 10:35 Ur Specific [place] 1.010 (1.005-1.030) 01/07/18 10:35 Urine Protein NEGATIVE mg/dL (NEGATIVE) 01/07/18 10:35 Urine Glucose (UA) >=1000 mg/dL (NEGATIVE) H 01/07/18 10:35 Urine Ketones NEGATIVE mg/dL (NEGATIVE) 01/07/18 10:35 Urine Blood NEGATIVE (NEGATIVE) 01/07/18 10:35 Urine Nitrate NEGATIVE (NEGATIVE) 01/07/18 10:35 Urine Bilirubin NEGATIVE (NEGATIVE) 01/07/18 10:35 Urine Urobilinogen 0.2 E.U./dL (0.2 - 1.0) 01/07/18 10:35 Ur Leukocyte Esterase NEGATIVE (NEGATIVE) 01/07/18 10:35 Urine RBC NONE SEEN /hpf (0-5) 01/07/18 10:35 Urine WBC 2-5 /hpf (0-5) 01/07/18 10:35 Ur Epithelial Cells OCCASIONAL /lpf (FEW) 01/07/18 10:35 Urine Bacteria FEW /hpf (NONE SEEN) 01/07/18 10:35 Urine Test NEGATIVE 01/07/18 11:40 Vancomycin Trough 6.5 ug/mL (5-10) 01/09/18 11:10 - Physical Exam Vitals and I&O: Vital Signs Temp 97.8 F 01/09/18 11:52 Pulse 87 01/09/18 11:52 Resp 18 01/09/18 11:52 BP 139/83 01/09/18 11:52 Pulse Ox 95 01/09/18 11:52 Intake & Output 01/08/18 01/09/18 01/09/18 18:59 06:59 18:59 Intake Total 1200 600 Balance 1200 600 Weight (lbs) 87.997 kg Intake: Intake, IV Amount 700 600 Piperacillin Sodium/ 200 100 Tazobact 4.5 gm In Sodium Chloride 0.9% 100 ml @ 100 mls/hr IV Q8H [facility] Rx# :[id number] Vancomycin HCl 1.5 gm In 500 500 Sodium Chloride 0.9% 500 ml @ 250 mls/hr IV Q12H [facility] Rx#:[id number] Oral 500 Other: # Voids 3 Weight Source Bedscale Active Medications: Current Medications Acetaminophen (Tylenol) 650 mg PO Q6H PRN PRN Reason: Pain or Fever >101 Stop: 03/08/18 15:33 Last Admin: 01/09/18 04:04 Dose: 650 mg Piperacillin Sod/Tazobactam (Sod 4.5 gm/ Sodium Chloride) 100 mls @ 100 mls/hr IV Q8H [facility] Stop: 03/08/18 15:14 Last Admin: 01/09/18 07:46 Dose: 100 mls/hr Vancomycin HCl 1.5 gm/ Sodium (Chloride) 500 mls @ 250 mls/hr IV Q8H [facility] Stop: 03/10/18 17:59 Potassium Chloride 10 meq/ (Sodium Chloride) 1,005 mls @ 50 mls/hr IV .Q20H6M [facility] Stop: 03/10/18 13:59 Insulin Aspart (Novolog Insulin Sliding Scale) 0 units SUBQ ACHS [facility]; Protocol Stop: 03/08/18 16:29 Last Admin: 01/09/18 12:23 Dose: 4 units Lactobacillus Rhamnosus (Culturelle 15b) 1 each PO DAILY [facility] Stop: 03/11/18 08:59 Lisinopril (Zestril) 20 mg PO DAILY [facility] Stop: 03/09/18 08:59 Last Admin: 01/09/18 09:22 Dose: Not Given Miscellaneous (Zosyn Iv Per Pharmacy) 1 ea PRN PRN PRN Reason: PROTOCOL Stop: 03/08/18 14:59 Miscellaneous (Vancomycin Iv Per Pharmacy) 1 ea PRN PRN PRN Reason: PROTOCOL Stop: 03/09/18 08:41 Miscellaneous (Probiotic Screen) 1 ea PRN PRN PRN Reason: PROTOCOL Stop: 03/10/18 11:14 Ondansetron HCl (Zofran) 4 mg IV Q4H PRN PRN Reason: Nausea / Vomiting Stop: 03/08/18 14:59 Pantoprazole Sodium (Protonix) 40 mg IVP DAILY [facility] Stop: 03/08/18 17:59 Last Admin: 01/09/18 10:31 Dose: 40 mg General: no acute distress, well developed, well nourished HEENT: atraumatic, normocephalic, PERRLA Neck: supple, no thyromegaly Cardiovascular: S1S2, regular Lungs: clear to auscultation bilaterally, clear to percussion Abdomen: soft, no tender, no distended, no rebound Extremities: no cyanosis, no clubbing, no edema Neurological: awake, alert, oriented Skin: intact Infectious Disease Assmt/Plan - Assessment Assessment: 1. Sepsis. improving. 2. Pyelonephritis, left side. 3. Hypertension. 4. Diabetes mellitus. - Plan Plan: dc vanco iv. continue zosyn, if she does well, may dc patient on Levaquin 500 mg po daily for 12 more days from now. Nutritional Asmnt/Malnutr-PDOC - Dietary Evaluation Malnutrition Findings (Please click <Entered> for more info): Nutritional Asmnt/Malnutrition Start: 01/08/18 17: 19 Text: Status: Complete Freq: Protocol: Document 01/08/18 17:19 LCHENG (Rec: 01/08/18 17:25 [email or web address]) Nutritional Asmnt/Malnutrition Patient General Information Nutritional Screening High Risk Consult Diagnosis hyponatremia, leukocytosis Pertinent Medical Hx/Surgical Hx HTN, DM Subjective Information Pt seen sitting up in bed at time of visit, wake and alert. Clear liquid diet started at lunch. Pt reported she was able to take liquid slowly. Appetite is ok. Current Diet Order/ Nutrition Support clear liquid Pertinent Medications novolog, zofran, protonix, piperacillin, kcl 10 meq, vancomycin Pertinent Labs 01/08 Na 133, K 3.4, BUN 6, Cr 0.5, glucose 274, POC 219-359, alb 3.2 01/07 Na 127, Cl 91, BUN 6, Cr 0.5, glucose 301 Nutritional Hx/Data Height 1.52 m Height (Calculated Centimeters) 152.4 Current Weight (lbs) 87.997 kg Weight (Calculated Kilograms) 88.0 Weight (Calculated Grams) 43121.9 [place] Body Weight 100 Body Mass Index (BMI) 37.8 Weight Status Obese GI Symptoms GI Symptoms None Last BM not indicated Difficult in: None Usual diet at home Per pt, she has not been following diabetic diet. Monitor glucose level once daily. Pt stated she is ready to start diabetic diet now. Skin Integrity/Comment: intact Estimated Nutritional Goals BEE in Kcals: Adj wt of IBW Calories/Kcals/Kg 25-30 adj wt 56kg Kcals Calculated 2362-0988 Protein: Adj wt of IBW Protein g/k-1.2 Protein Calculated 56-67 Fluid: ml 1400-1680ml (1ml/kcal) Nutritional Problem 1. Problem Problem alteread nutrition related labs Etiology electrolytes imbalance and hx of DM and not following theraputic diet Signs/Symptoms: Na 133, K 3.4, glucose 274, POC 219-359 Malnutrition Alert Is there a minimum of two criteria No selected? Query Text:Check all the applicable criteria. A minimum of two criteria are recommended for diagnosis of either severe or non-severe malnutrition. Malnutrition Related to Morbid Obesity Malnutrition related to morbid obesity No Intervention/Recommendation Comments 1. Continue with current diet as ordered. Advance to [facility]- 60gm diet when medically appropriate. Nutrition education provided, handout provided. Had discussion about diabetic diet. Pt verbalized understanding. 2. Monitor PO intake, wt, labs and skin integrity 3. F/U as high risk in 2-3 days, 01/10-01/11 Expected Outcomes/Goals Expected Outcomes/Goals 1. PO intake to meet at least 75% of nutritional needs. 2. Wt stability, skin to remain intact, labs to approach WNL.
[2018-01-09] MEDS ORDERED: Vancomycin HCl 1.5 GM in Sodium Chloride 0.9% 500 ML IV SCH (18:00)
[2018-01-10 06:29] LABS: % BASOPHILS 0.6 % (0.0-2.0); % LYMPHOCYTES 19.4 % (20.0-50.0); % MONOCYTES 6.9 % (2.0-10.0); % NEUTROPHILS 71.1 % (40.0-80.0); BASOPHILE ABSOLUTE 0.1 Th/cumm (0-0.2); EOSINOPHILE ABSOLUTE 0.2 Th/cmm (0.1-0.4); HEMATOCRIT 31.6 % (41.0-60); HEMOGLOBIN 10.8 gm/dL (12-16); LYMPHOCYTE ABSOLUTE 1.9 Th/cmm (1.5-3.0); MEAN CELL VOLUME 85.8 fl (81-100); MEAN CORPUSCULAR HEMOGLOBIN 29.4 pg (27.0-31.0); MEAN CORPUSCULAR HGB CONC 34.3 pg (28.0-36.0); MEAN PLATELET VOLUME 7.3 fl; MONOCYTE ABSOLUTE 0.7 Th/cmm (0.3-1.0); NEUTROPHILE ABSOLUTE 6.9 Th/cmm (1.8-8.0); PLATELET COUNT 301 Th/cmm (150-400); RED BLOOD COUNT 3.68 Mil/cmm (3.80-5.10); RED CELL DISTRIBUTION WIDTH 12.4 % (11.5-20.0); WHITE BLOOD COUNT 9.8 Th/cmm (4.8-10.8)
[2018-01-10] MEDS: INSULIN ASPART SLIDING SCALE 100 UNITS/ML UNIT SUBQ SCH (07:47)
--- NOTE | 2018-01-10 08:52 | General Progress Note ---
Subjective - Review of Systems Service Date: 01/10/18 Subjective: Patient recently had EGD done yesterday. Feels better today. eating regular diet. no nausea or vomiting today. Patient wants to go home. Objective - Results Result Diagrams: 01/10/18 06:00 01/09/18 04:55 Recent Labs: Laboratory Last Values WBC 9.8 Th/cmm (4.8-10.8) 01/10/18 06:00 RBC 3.68 Mil/cmm (3.80-5.10) L 01/10/18 06:00 Hgb 10.8 gm/dL (12-16) L 01/10/18 06:00 Hct 31.6 % (41.0-60) L 01/10/18 06:00 MCV 85.8 fl (81-100) 01/10/18 06:00 MCH 29.4 pg (27.0-31.0) 01/10/18 06:00 MCHC Differential 34.3 pg (28.0-36.0) 01/10/18 06:00 RDW 12.4 % (11.5-20.0) 01/10/18 06:00 Plt Count 301 Th/cmm (150-400) 01/10/18 06:00 MPV 7.3 fl 01/10/18 06:00 Add Manual Diff YES 01/08/18 05:00 Neutrophils % 71.1 % (40.0-80.0) 01/10/18 06:00 Band Neutrophils % 3 % (0-10) 01/08/18 05:00 Lymphocytes % 19.4 % (20.0-50.0) L 01/10/18 06:00 Monocytes % 6.9 % (2.0-10.0) 01/10/18 06:00 Eosinophils % 2.0 % (0.0-5.0) 01/10/18 06:00 Basophils % 0.6 % (0.0-2.0) 01/10/18 06:00 Neutrophils (Manual) 81 % (40-80) H 01/08/18 05:00 Lymphocytes 11 % (20-50) L 01/08/18 05:00 Monocytes 5 % (2-10) 01/08/18 05:00 Eosinophils 0 % (0-5) 01/08/18 05:00 Basophils 0 % (0-3) 01/08/18 05:00 PT 11.3 SECONDS (9.5-11.5) 01/09/18 04:55 INR 1.09 (0.5-1.4) 01/09/18 04:55 Sodium 134 mEq/L (136-145) L 01/09/18 04:55 Potassium 3.5 mEq/L (3.5-5.1) 01/09/18 04:55 Chloride 102 mEq/L (98-107) 01/09/18 04:55 Carbon Dioxide 24.0 mEq/L (21.0-31.0) 01/09/18 04:55 Anion Gap 11.5 (7.0-16.0) 01/09/18 04:55 BUN 5 mg/dL (7-25) L 01/09/18 04:55 Creatinine 0.4 mg/dL (0.6-1.2) L 01/09/18 04:55 Est GFR ( Amer) > 60.0 ml/min (>90) 01/09/18 04:55 Est GFR (Non-Af Amer) > 60.0 ml/min 01/09/18 04:55 BUN/Creatinine Ratio 12.5 01/09/18 04:55 Glucose 268 mg/dL (70-105) H 01/09/18 04:55 POC Glucose 299 MG/DL (70 - 105) H 01/10/18 05:50 Hemoglobin A1c % 8.1 % (4.0-6.0) H 01/07/18 11:20 Whole Bld Lactic Acid 1.31 mmol/L (0.60-1.99) 01/07/18 11:20 Calcium 8.4 mg/dL (8.6-10.3) L 01/09/18 04:55 Total Bilirubin 0.8 mg/dL (0.3-1.0) 01/09/18 04:55 AST 10 U/L (13-39) L 01/09/18 04:55 ALT 19 U/L (7-52) 01/09/18 04:55 Alkaline Phosphatase 62 U/L (34-104) 01/09/18 04:55 Troponin I < 0.01 ng/mL (0.01-0.05) L 01/07/18 11:20 Total Protein 6.5 gm/dL (6.0-8.3) 01/09/18 04:55 Albumin 3.1 gm/dL (3.7-5.3) L 01/09/18 04:55 Globulin 3.4 gm/dL 01/09/18 04:55 Albumin/Globulin Ratio 0.9 (1.0-1.8) L 01/09/18 04:55 Triglycerides 81 mg/dL (<150) 01/08/18 05:00 Cholesterol 100 mg/dL (<200) 01/08/18 05:00 LDL Cholesterol Direct 67 mg/dL (75-193) L 01/08/18 05:00 HDL Cholesterol 23 mg/dL (23-92) 01/08/18 05:00 Lipase 3 U/L (11-82) L 01/09/18 04:55 TSH 1.36 uIU/ml (0.34-5.60) 01/08/18 05:00 Urine Source CLEAN C 01/07/18 10:35 Urine Color YELLOW 01/07/18 10:35 Urine Clarity CLEAR (CLEAR) 01/07/18 10:35 Urine pH 7.5 (4.6 - 8.0) 01/07/18 10:35 Ur Specific Elizabeth 1.010 (1.005-1.030) 01/07/18 10:35 Urine Protein NEGATIVE mg/dL (NEGATIVE) 01/07/18 10:35 Urine Glucose (UA) >=1000 mg/dL (NEGATIVE) H 01/07/18 10:35 Urine Ketones NEGATIVE mg/dL (NEGATIVE) 01/07/18 10:35 Urine Blood NEGATIVE (NEGATIVE) 01/07/18 10:35 Urine Nitrate NEGATIVE (NEGATIVE) 01/07/18 10:35 Urine Bilirubin NEGATIVE (NEGATIVE) 01/07/18 10:35 Urine Urobilinogen 0.2 E.U./dL (0.2 - 1.0) 01/07/18 10:35 Ur Leukocyte Esterase NEGATIVE (NEGATIVE) 01/07/18 10:35 Urine RBC NONE SEEN /hpf (0-5) 01/07/18 10:35 Urine WBC 2-5 /hpf (0-5) 01/07/18 10:35 Ur Epithelial Cells OCCASIONAL /lpf (FEW) 01/07/18 10:35 Urine Bacteria FEW /hpf (NONE SEEN) 01/07/18 10:35 Urine Test NEGATIVE 01/07/18 11:40 Vancomycin Trough 6.5 ug/mL (5-10) 01/09/18 11:10 - Physical Exam Vitals and I&O: Vital Signs Temp 97.9 F 01/10/18 04:00 Pulse 92 01/10/18 04:00 Resp 18 01/10/18 04:00 BP 148/74 01/10/18 04:00 Pulse Ox 81 01/10/18 04:00 Intake & Output 01/09/18 01/10/18 01/10/18 18:59 06:59 18:59 Intake Total 1400 580 Balance 1400 580 Weight (lbs) 97.069 kg 97.069 kg Intake: Intake, IV Amount 200 100 Piperacillin Sodium/ 200 100 Tazobact 4.5 gm In Sodium Chloride 0.9% 100 ml @ 100 mls/hr IV Q8H [facility] Rx# :[id number] Oral 1200 480 Other: # Voids 7 4 # Bowel Movements 1 Weight Source Bedscale Bedscale Active Medications: Current Medications Acetaminophen (Tylenol) 650 mg PO Q6H PRN PRN Reason: Pain or Fever >101 Stop: 03/08/18 15:33 Last Admin: 01/10/18 02:16 Dose: 650 mg Piperacillin Sod/Tazobactam (Sod 4.5 gm/ Sodium Chloride) 100 mls @ 100 mls/hr IV Q8H [facility] Stop: 03/08/18 15:14 Last Admin: 01/10/18 07:00 Dose: 100 mls/hr Potassium Chloride 10 meq/ (Sodium Chloride) 1,005 mls @ 50 mls/hr IV .Q20H6M [facility] Stop: 03/10/18 13:59 Last Admin: 01/09/18 14:28 Dose: 50 mls/hr Insulin Aspart (Novolog Insulin Sliding Scale) 0 units SUBQ ACHS [facility]; Protocol Stop: 03/08/18 16:29 Last Admin: 01/10/18 07:47 Dose: 6 units Lactobacillus Rhamnosus (Culturelle 15b) 1 each PO DAILY [facility] Stop: 03/11/18 08:59 Lisinopril (Zestril) 20 mg PO DAILY [facility] Stop: 03/09/18 08:59 Last Admin: 01/09/18 09:22 Dose: Not Given Miscellaneous (Zosyn Iv Per Pharmacy) 1 ea [facility] PRN PRN PRN Reason: PROTOCOL Stop: 03/08/18 14:59 Miscellaneous (Probiotic Screen) 1 ea MC PRN PRN PRN Reason: PROTOCOL Stop: 03/10/18 11:14 Ondansetron HCl (Zofran) 4 mg IV Q4H PRN PRN Reason: Nausea / Vomiting Stop: 03/08/18 14:59 Pantoprazole Sodium (Protonix) 40 mg IVP DAILY [facility] Stop: 03/08/18 17:59 Last Admin: 01/09/18 10:31 Dose: 40 mg General: Alert, Oriented x3, No acute distress HEENT: Atraumatic, PERRLA, EOMI Neck: Supple, no JVD, no Thyromegaly Cardiovascular: Regular rate, Normal S1, Normal S2 Lungs: Clear to auscultation Abdomen: Bowel sounds Extremities: no Clubbing, no Cyanosis, no Edema Assessment/Plan - Assessment Assessment: abdominal pain secondary to Gastritis and esophagitis noted on EGD...Patient to be switched to PO Omeprazole 40mg daily. sepsis improved ... will dc IV zosyn and IV Vanco. Patient to be given Levofloxacin 500mg PO daily x 10 days leukocytosis improved hyponatremia improved. diabetes mellitus hypertension elevated ... will add Vasotec. Will add Clonidine GERD ... will add omeprazole 40mg PO daily. - Plan Plan: keep NPO continue IV fluids continue IV Zosyn Zofran IV PRN Nausea repeat cbc, cmp UA GI consult -- Dr. Whitfield ID consult -- Dr. Walter Sarah For endoscopy Nutritional Asmnt/Malnutr-PDOC - Dietary Evaluation Malnutrition Findings (Please click <Entered> for more info): Nutritional Asmnt/Malnutrition Start: 01/08/18 17: 19 Text: Status: Complete Freq: Protocol: Document 01/08/18 17:19 LCHENG (Rec: 01/08/18 17:25 LCHENG [email or web address]) Nutritional Asmnt/Malnutrition Patient General Information Nutritional Screening High Risk Consult Diagnosis hyponatremia, leukocytosis Pertinent Medical Hx/Surgical Hx HTN, DM Subjective Information Pt seen sitting up in bed at time of visit, wake and alert. Clear liquid diet started at lunch. Pt reported she was able to take liquid slowly. Appetite is ok. Current Diet Order/ Nutrition Support clear liquid Pertinent Medications novolog, zofran, protonix, piperacillin, kcl 10 meq, vancomycin Pertinent Labs 01/08 Na 133, K 3.4, BUN 6, Cr 0.5, glucose 274, POC 219-359, alb 3.2 01/07 Na 127, Cl 91, BUN 6, Cr 0.5, glucose 301 Nutritional Hx/Data Height 1.52 m Height (Calculated Centimeters) 152.4 Current Weight (lbs) 87.997 kg Weight (Calculated Kilograms) 88.0 Weight (Calculated Grams) 01953.9 [place] Body Weight 100 Body Mass Index (BMI) 37.8 Weight Status Obese GI Symptoms GI Symptoms None Last BM not indicated Difficult in: None Usual diet at home Per pt, she has not been following diabetic diet. Monitor glucose level once daily. Pt stated she is ready to start diabetic diet now. Skin Integrity/Comment: intact Estimated Nutritional Goals BEE in Kcals: Adj wt of IBW Calories/Kcals/Kg 25-30 adj wt 56kg Kcals Calculated 3450-5045 Protein: Adj wt of IBW Protein g/k-1.2 Protein Calculated 56-67 Fluid: ml 1400-1680ml (1ml/kcal) Nutritional Problem 1. Problem Problem alteread nutrition related labs Etiology electrolytes imbalance and hx of DM and not following theraputic diet Signs/Symptoms: Na 133, K 3.4, glucose 274, POC [id number] Malnutrition Alert Is there a minimum of two criteria No selected? Query Text:Check all the applicable criteria. A minimum of two criteria are recommended for diagnosis of either severe or non-severe malnutrition. Malnutrition Related to Morbid Obesity Malnutrition related to morbid obesity No Intervention/Recommendation Comments 1. Continue with current diet as ordered. Advance to [facility] [place]- 60gm diet when medically appropriate. Nutrition education provided, handout provided. Had discussion about diabetic diet. Pt verbalized understanding. 2. Monitor PO intake, wt, labs and skin integrity 3. F/U as high risk in 2-3 days, 01/10-01/11 Expected Outcomes/Goals Expected Outcomes/Goals 1. PO intake to meet at least 75% of nutritional needs. 2. Wt stability, skin to remain intact, labs to approach WNL.
[2018-01-10] MEDS ORDERED: Lactobacillus Rhamnosus GG 15 Billion CFU CAP.SPRINK PO SCH (09:00)
[2018-01-10 09:15] LABS: ANION GAP 11.5 (7.0-16.0); BUN - UREA NITROGEN 6 mg/dL (7-25); CALCIUM SERUM 8.6 mg/dL (8.6-10.3); CARBON DIOXIDE 23.2 mEq/L (21.0-31.0); CHLORIDE 103 mEq/L (98-107); CREATININE - SERUM 0.5 mg/dL (0.6-1.2); GFR AFRICAN-AMERICAN > 60.0 ml/min (>90); GFR NON AFRICAN-AMERICAN > 60.0 ml/min; GLUCOSE 315 mg/dL (70-105); POTASSIUM SERUM 3.7 mEq/L (3.5-5.1); SODIUM SERUM 134 mEq/L (136-145)
--- NOTE | 2018-01-10 14:21 | Pathology Report ---
[id number] Collection date: 01/09/2018 Surgeon: Dr. Amber Kirkland Specimen Description: 1. Duodenum biopsy 2. Antrum biopsy 3. Esophageal biopsy Gross Description: Part I: Received in formalin is a 0.2 cm shaw soft tissue fragment. Totally submitted in one cassette labeled A. Gross Description: Part II: Received in formalin is a 0.2 cm shaw soft tissue fragment. Totally submitted in one cassette labeled B. Gross Description: Part III: Received in formalin are two shaw soft tissue fragments ranging from 0.1 to 0.2 cm in greatest dimension. Totally submitted in one cassette labeled C. Microscopic Description: Part I: The histologic sections show benign duodenal mucosa with intact intestinal villi, showing no evidence for villous abnormality. Diagnosis: Part I: No evidence for celiac disease / sprue (duodenal biopsy). Microscopic Description: Part II: The histologic sections show gastric mucosa with mild chronic inflammation present consisting of lymphocytes and plasma cells. The Giemsa stain shows no evidence for Helicobacter pylori. Diagnosis: Part II: 1. Mild chronic gastritis, antrum biopsy. 2. The Giemsa stain is negative for Helicobacter pylori. Microscopic Description: Part III: The histologic sections show benign glandular mucosa with mild chronic inflammation present consisting of lymphocytes and plasma cells. There is no evidence for ulceration. The Alcian blue stain shows no significant abnormalities. The PAS stain shows no evidence for fungal organisms. Diagnosis: Part III: Chronic inflammation consistent with chronic esophagogastritis (esophageal biopsy). JOB# [id number] MTDD
--- NOTE | 2018-01-11 09:07 | Discharge Summary ---
DATE OF DISCHARGE: 01/10/2018 ADMITTING DIAGNOSES: 1. Abdominal pain. 2. Possible pyelonephritis. 3. Leukocytosis. 4. Hyponatremia. 5. Diabetes mellitus. 6. Hypertension. 7. History of gastroesophageal reflux disease. DISCHARGE DIAGNOSES: 1. Abdominal pain secondary to esophagitis and gastritis. 2. Leukocytosis, now resolved. 3. Hyponatremia, improved. 4. Diabetes mellitus. 5. Hypertension. BRIEF HISTORY OF PRESENT ILLNESS: This is a 42-year-old female who presents to [facility] ER for epigastric abdominal pain with associated nausea, vomiting, which began few days prior to admission. The patient was complaining of burning sensation into her chest, has a history of gastroesophageal reflux disease and takes only Zantac and had apparently stopped taking the medication one week prior. The patient has a history of diabetes mellitus, hypertension and was found to have elevated blood sugars in the 300s while in the ER. Initial lab work done in the ER revealed a white count of 15,000, hemoglobin of 12.5, hematocrit of 36.5, platelets of 274, sodium was noted to be decreased at 127, potassium 3.8, chloride was 91, bicarbonate 28, BUN 6, creatinine 0.5 and glucose was 301. UA was positive for glucose over 1000, leukocyte esterase negative, nitrites were negative, bacteria was few. The patient underwent a CT of her abdomen, which revealed possible pyelonephritis. The patient was then subsequently admitted for further evaluation. HOSPITAL COURSE: The patient improved during her hospital stay, was initially kept n.p.o., and placed on IV fluids. The patient was started on IV Protonix 40 mg given her leukocytosis. The patient was initially started on IV Zosyn and vancomycin. A GI consult ___. The patient also was seen and evaluated by ID. Please see dictated report. Her white count initially noted at 15.8, did improve during her hospital stay and had decreased to 12.4 on 01/09/2018 and had decreased further to 9.8 on 01/10/2018. The patient did undergo an upper endoscopy, which did reveal esophagitis and gastritis. The patient was advised to stay on proton pump inhibitor. The patient was subsequently discharged in stable condition, was to follow up with her regular physician and given a prescription for omeprazole 40 mg once daily for the next 30 days. The patient also was given a course of antibiotics, Levaquin 500 mg once a day for the next 10 days. [facility]# [id number]
== END 2018-01-10 10:30 | disposition home or self-care (01) | DRG 720 ==
LOC: ER 09:57 → MSI 13:08 → UNDOADMIN 13:49 → MSI 13:49
PROVIDERS: ADMIT Family Medicine; ATTEND Family Medicine
PROC: 0DB98ZX Excision of Duodenum, Via Natural or Artificial Opening Endoscopic, Diagnostic (ICD-10-PCS; principal; 2018-01-09)
PROC: 0DB68ZX Excision of Stomach, Via Natural or Artificial Opening Endoscopic, Diagnostic (ICD-10-PCS; 2018-01-09)
PROC: 0DB58ZX Excision of Esophagus, Via Natural or Artificial Opening Endoscopic, Diagnostic (ICD-10-PCS; 2018-01-09)
DX: A41.9 Sepsis, unspecified organism (principal); E11.65 Type 2 diabetes mellitus with hyperglycemia; E87.1 Hypo-osmolality and hyponatremia; K21.0 Gastro-esophageal reflux disease with esophagitis; N12 Tubulo-interstitial nephritis, not specified as acute or chronic; D72.829 Elevated white blood cell count, unspecified; Z68.41 Body mass index [BMI] 40.0-44.9, adult; I10 Essential (primary) hypertension; E66.9 Obesity, unspecified; K29.70 Gastritis, unspecified, without bleeding; Z79.4 Long term (current) use of insulin
CPT/HCPCS: 36415-UA; 76700-TC; 80048-TC; 80053-TC; 80061-TC; 80202-TC; 81001-TC; 81025-TC; 82948-90; 83036-90; 83605; 83690-TC; 84443-TC; 84484-TC; 85007-TC; 85025-TC; 85610-TC; 87338-TC; 93005; 96374; C9113; J1815; J2543; J2704; J3370; J3480; J7030; J7040; Z7610